=== PATIENT | female | born 1970 ===

== ENCOUNTER → 2019-10-16 | Outpatient (CLI) | payer BC ==
--- NOTE | 2019-10-19 09:40 | HOLTMON ---
[facility] Test Date: 2019-10-16 Pat Name: ROSLYN VILLARREAL Department: Room: - Gender: Female Director Of Materials: Connie Alexander/MARIN KELLY : 1970 Requested By: ELANA Rod PA-C Order Number: [id number] Reading MD: Ryder Browning Interpretive Statements 24HR HOLTER MONITOR(25 hours 10 minutes) Predominately sinus rhythm with heart rates ranging from 45 bpm (at 5:09 AM) to a maximum 146 bpm; average heart rate 91 bpm.No atrial fibrillation. Rare PACs includingCouplets and one nonsustained atrial run(7 beats).Rare isolated PVCs.No Progressive for high-grade AV block or sinus arrest. No Sustained SVT or ventricular tachycardia.Holter monitor findings within normal limits.No symptoms reported. Electronically Signed on 10-19-2019 9:40:24 EDT by Ryder Browning
== END ==
LOC: M EKG 14:58
PROVIDERS: ATTEND Physician Assistant Medical
DX: R06.09 Other forms of dyspnea (principal); R42 Dizziness and giddiness